=== PATIENT | male | born 1990 | race Caucasian/White ===

== ENCOUNTER 2018-11-30 06:15 | Observation (INO) | payer OTHER ==
[~2018-11-30] VITALS: Ht 172.7 cm; Wt 103.6 kg
[2018-11-30] VITALS (11 sets, daily range): BP systolic 102–128; BP diastolic 50–70; PULSE 58–93; TEMP 98.1–98.3
[2018-11-30 06:59] LABS: COLLECTION METHOD CLEAN CATCH
[2018-11-30 07:07] LABS: BASO % 0.2 % (0.0-2.0); EOS % 0.1 % (0-4.0); GRAN # 14.1 (1.4-6.5); GRAN % 84.8 % (42.2-75.2); HEMATOCRIT 48.4 % (42.0-52.0); HEMOGLOBIN 16.7 g/dl (13.5-18.0); LYMPH # 1.3 (1.2-3.4); LYMPH % 8.1 % (20.0-51.0); MEAN CELL VOLUME 92 fl (80.0-100.0); MEAN CORPUSCULAR HEMOGLOBIN 32 pg (27.0-31.0); MEAN CORPUSCULAR HGB CONC 35 g/dl (33.0-37.0); MEAN PLATELET VOLUME 10.9 fl (7.4-10.4); MONO # 1.1 (0.1-0.6); MONO % 6.4 % (1.7-9.3); PLATELET COUNT 204 K/mm3 (130-400); RED BLOOD COUNT 5.27 M/mm3 (4.20-5.60); REDCELL DISTRIBUTION WIDTH-CV 12.2 % (11.5-14.5)
[2018-11-30 07:14] LABS: MUCOUS Present /lpf; PH 7 (5-8); SQUAMOUS EPITHELIAL None Seen /hpf; URINE APPEARANCE Clear; URINE BACTERIA None Seen /hpf; URINE BILIRUBIN Negative (NEGATIVE); URINE BLOOD Negative (NEGATIVE); URINE COLOR Yellow; URINE GLUCOSE Negative (NEGATIVE); URINE KETONE Negative (NEGATIVE); URINE LEUKOCYTE ESTERASE Negative (NEGATIVE); URINE NITRATE Negative (NEGATIVE); URINE PROTEIN(semi-quant) Negative (NEGATIVE); URINE RBC 0-2 /hpf; URINE UROBILINOGEN Negative (NEGATIVE)
[2018-11-30 07:18] LABS: ALBUMIN 4.7 gm/dL (3.5-5.0); BILIRUBIN,TOTAL 0.9 mg/dL (0.0-1.0); C-REACTIVE PROTEIN 2.9 mg/dL (0.0-0.9); CALCIUM 9.8 mg/dL (8.4-10.2); POTASSIUM 4.4 mmol/L (3.4-5.0); TOTAL PROTEIN 8.3 gm/dL (6.4-8.2)
--- NOTE | 2018-11-30 10:00 | NUR ---
arrived on unti per WC and assisted into bed
--- NOTE | 2018-11-30 10:26 | NUR ---
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
--- NOTE | 2018-11-30 11:06 | NUR ---
appears to be sleeping, in bed with eyes closed, resp quiet and easy, at bedside
--- NOTE | 2018-11-30 11:32 | NUR ---
full admission assessment completed, Dr Neal in to see patient, OR staff here to take patient to surgery
--- NOTE | 2018-11-30 11:40 | NUR ---
to surgery per bed
[2018-11-30] MEDS ORDERED: MOTRIN 600600 MG/TAB PO (13:01)
[2018-11-30] MEDS ORDERED: AMOXICILLIN 8751 TAB PO (13:01)
[2018-11-30] MEDS ORDERED: NORCO 325 MG-51 TAB PO (13:01)
[2018-11-30] MEDS ORDERED: COLACE 100100 MG/CAP PO (13:01)
--- NOTE | 2018-11-30 13:45 | NUR ---
returned to room per bed from PACU, awake and alert, IV infusing per gravity at slow rate, lap sites with palomares set CD&I, given scheduled med and takes without difficulty
--- NOTE | 2018-11-30 14:00 | NUR ---
visiting with family, provided puding and if toelrates will instruct on ordering regular food
--- NOTE | 2018-11-30 14:15 | NUR ---
tolerated pudding well, instructed on ordering regular food, verbalizes understanding
--- NOTE | 2018-11-30 14:30 | NUR ---
resting quietly, states he hasn't ordering anything more to eat yet that is feeling a littl nauseous
--- NOTE | 2018-11-30 15:30 | NUR ---
sitting up in bed and eating a grilled cheese sandwich and is tolerating well
--- NOTE | 2018-11-30 16:30 | NUR ---
playing cardw with his , O2 sat95% and O2 down to 2L
--- NOTE | 2018-11-30 17:20 | NUR ---
up to bathroom and voided, when ambulated back to bed O2 off and O2 sat 88-90%, O2 back on at 2L
--- NOTE | 2018-11-30 18:43 | NUR ---
bedside shift report given to JERED Carrasco
--- NOTE | 2018-11-30 21:00 | NUR ---
Pt. sitting up in bed at this time. Pt. is A&OX3, assessment complete. INT to rt. ac patent. Pt. reports pain at a 2 on pain scale at this time. Pt. denies further needs at this time. Call light within reach.
[2018-12-01 00:03] VITALS: BP 119/55; PULSE 69; TEMP 98.4
[2018-12-01 04:31] VITALS: BP 110/76; PULSE 60; TEMP 98.3
[2018-12-01 07:47] VITALS: BP 119/54; PULSE 61; TEMP 98.3
--- NOTE | 2018-12-01 08:00 | NUR ---
PATIENT IS A&O. VSS. RATES PAIN IN ABD AT 5/10. GAVE PRN NORCO, ONE TAB WITH AM MEDS. BREAKFAST TRAY ORDERED. NO C/O N/V. RIGHT AC IV TO INT. PATIENT INDEPENDENT IN ROOM AND VOIDING SUFFICENT AMOUNTS. HEAD TO TOE ASSESSMENT WNL. ABDOMINAL LAP SITES X3 CD&I WITH CHRYSTAL. PATIENT HOPING TO DISCHARGE HOME LATER TODAY
--- NOTE | 2018-12-01 10:41 | NUR ---
Initial visit; Patient thanked Heat Set Operator for looking in on him and offering God's blessings.
--- NOTE | 2018-12-01 12:30 | NUR ---
PATIENT DISCHARGING HOME VIA AMBULATORY TO PERSONAL VEHICLE WITH FAMILY. GAVE DISCHARGE INSTRUCTIONS, PRESCRIPTIONS AND FOLLOW UP APT. ANSWERED ALL QUESTIONS/CONCERNS. DC'D RIGHT AC IV. SENT HOME PERSONAL BELONGINGS. PATIENT DISCHARGED.
== END 2018-12-01 12:30 | disposition home or self-care (01) ==
LOC: COL.ER 06:15 → JCC 08:33 → COL.ER 09:45 → JCC 12-01 12:30
PROVIDERS: Emergency Medicine; ADMIT Surgery
DX: K35.80 Unspecified acute appendicitis (principal); Z87.891 Personal history of nicotine dependence
CPT/HCPCS: G0378; J1100; J1170; J1885; J2270; J2405; J2543; J2704; J2710; J3010; J7030; J7120; Q9967